=== PATIENT | male | born 1940 | race Caucasian/White ===

== ENCOUNTER 2024-01-22 17:36 | Inpatient (IN) | payer MEDICARE, BC ==
[~2024-01-22] VITALS: Ht 162.6 cm; Wt 84.7 kg
[~2024-01-22 17:36] MED LIST: BENTYL 20MG20 MG/TAB PO; CIPRO 500MG TA500 MG PO; CLARITIN 1010 MG/TAB PO; COLACE 100100 MG/CAP PO; COZAAR 25MG25 MG/TAB PO; FISH OIL1000 MG PO; LORTAB 5/500 501 TAB PO; MAXZIDE 50 MG-71 TAB PO; NORCO 325 MG-7.1 TAB PO; OCUVITE1 TA1 PO; OMEGA 31000 MG PO; PROTONIX 40MG T40 MG PO; SUPER EPA-3001000 MG PO; TENORMIN 5050 MG/TAB PO; VITAMIN D1000 IU PO; VITAMIN D32000 IU PO; ZOCOR 10MG10 MG PO; ZYRTEC 10MG10 MG PO
[2024-01-22] MEDS ORDERED: oxyCODONE 5 MG TAB PO PRN (18:15)
[2024-01-22] MEDS ORDERED: D5 1/2 NS 1,000 ML IV SCH (18:15)
[2024-01-22] MEDS ORDERED: Morphine 4 MG/ML VIAL IV PRN (18:15)
[2024-01-22] MEDS ORDERED: Naloxone 0.4 MG/ML VIAL IV PRN (18:15)
[2024-01-22] MEDS ORDERED: Acetaminophen 500 MG TAB PO SCH (19:09)
[2024-01-22] MEDS ORDERED: ELIQUIS 5MG PO (19:35)
[2024-01-22] MEDS ORDERED: OMEGA-3 1000 MG1 CAP PO (19:35)
[2024-01-22] MEDS ORDERED: MASON NATURAL2000 IU PO (19:36)
[2024-01-22] MEDS ORDERED: OCUVITE1 TA1 PO (19:36)
[2024-01-22] MEDS ORDERED: LIPITOR20 MG PO (19:36)
[2024-01-22] MEDS ORDERED: CARDIZEM CD 12120 MG PO (19:36)
[2024-01-22] MEDS ORDERED: PROTONIX 40MG T40 MG PO (19:37)
[2024-01-22] MEDS ORDERED: BYSTOLIC10 MG PO (19:37)
[2024-01-22] MEDS ORDERED: COZAAR100 MG PO (19:37)
[2024-01-22] MEDS ORDERED: INSPRA25 MG PO (19:37)
[2024-01-22] MEDS ORDERED: TIKOSYN0.25 MG PO (19:37)
[2024-01-22] MEDS ORDERED: ASPIRIN 81M81 MG/TA2 PO (20:14)
[2024-01-22] MEDS ORDERED: NORCO 325 MG-7.1 TAB PO (20:33)
[2024-01-22] MEDS ORDERED: TYLENOL 500MG500 MG PO (20:35)
[2024-01-22] MEDS ORDERED: TYLENOL 8 HR PO (20:36)
[2024-01-22 20:37] VITALS: BP 147/75; PULSE 83; TEMP 99.7
[2024-01-22 21:00] VITALS: BP_SYST 147
[2024-01-22] MEDS ORDERED: Dofetilide 250 MCG CAP PO SCH (21:00)
[2024-01-22] MEDS ORDERED: Atorvastatin 20 MG TAB PO SCH (21:00)
[2024-01-22] MEDS ORDERED: Eye Formula MVI w/Minerals TABLET PO SCH (21:00)
[2024-01-22] MEDS ORDERED: Loratadine 10 MG TAB PO SCH (21:00)
[2024-01-22 21:12] LABS: HEMATOCRIT 25.2 % (42.0-52.0)
--- NOTE | 2024-01-22 22:32 | NUR ---
pt arrived to room 345 at 1945 via EMS. pt assisted to bed via slide board. admission, physical assessment, and med rec complete. pt c/o of pain. prn oxycodone administered with no relief. prn morphine administered per orders and provided pt with relief. pt denies pain at this time. fall precautions in place. call light in reach. all needs met at this time.
[2024-01-23] VITALS (13 sets, daily range): BP systolic 128–175; BP diastolic 57–79; PULSE 62–82; TEMP 98–98.7
--- NOTE | 2024-01-23 01:54 | NUR ---
pt running temp of 102.4. prn tylenol administered per orders. prn robotussin administered per orders for cough.
--- NOTE | 2024-01-23 01:56 | NUR ---
pt c/o 04/08 left hip pain. prn morphine administered per orders.
[2024-01-23 07:19] LABS: ALBUMIN 3.1 g/dL (3.4-4.8); CALCIUM 8.2 mg/dL (8.4-10.2); CREATININE, serum 0.83 mg/dL (0.72-1.25); TOTAL PROTEIN 5.2 g/dl (6.2-8.1)
[2024-01-23 07:20] LABS: BASO % 0.3 % (0.0-2.0); EOS # 0.1 K/mm3 (0.0-0.7); EOS % 1.4 % (0.0-4.0); GRAN # 4.6 K/mm3 (1.4-6.5); GRAN % 73.2 % (42.2-75.2); LYMPH % 16.4 % (20.0-51.0); MEAN CELL VOLUME 84 fl (80.0-100.0); MEAN CORPUSCULAR HGB CONC 33 g/dl (33.0-37.0); MEAN PLATELET VOLUME 10.9 fl (7.4-10.4); MONO # 0.5 K/mm3 (0.1-0.6); MONO % 8.2 % (1.7-9.3); PLATELET COUNT 137 K/mm3 (130-400); RED BLOOD COUNT 2.73 M/mm3 (4.20-5.60); REDCELL DISTRIBUTION WIDTH-CV 15.7 % (11.5-14.5)
[2024-01-23 08:01] LABS: HEMOGLOBIN 7.6 g/dl (13.5-18.0); MEAN CORPUSCULAR HEMOGLOBIN 28 pg (27-31)
[2024-01-23] MEDS ORDERED: Losartan 50 MG TAB PO SCH (09:00)
[2024-01-23] MEDS ORDERED: Bisoprolol 5 MG TAB PO SCH (09:00)
[2024-01-23] MEDS ORDERED: dilTIAZem CD (24-HR) 120 MG CAP PO SCH ×2 (09:00→12:00)
[2024-01-23] MEDS ORDERED: Nebivolol 10 MG **** subs to Bisoprolol 10 MG PO SCH (09:00)
[2024-01-23] MEDS ORDERED: Cholecalciferol (Vit D3) 1000 Units TAB PO SCH (09:00)
[2024-01-23] MEDS ORDERED: EPINEPHrine 0.3 MG/0.3 ML Auto Injector IM SCH ×2 (10:50→11:00)
--- NOTE | 2024-01-23 11:32 | NUR ---
Initial visit; Patient thanked Sand Conditioner Machine for looking in on him. Patient and Sand Conditioner Machine are old friends. Patient not a demonstrative person but states he has enjoyed his family and has enjoyed a good life. Patient having trouble slowing down and recently just fell backward and hurt his hip and is waiting for to do something about his injury. Sand Conditioner Machine will keep "Jed" in her prayers.
[2024-01-23] MEDS ORDERED: Eplerenone 25 MG TAB PO SCH (12:00)
--- NOTE | 2024-01-23 16:21 | NUR ---
damper worker met with patient to discuss discharge planning. Patient was in pain and waiting for pain medications but was willing to meet with social work nurse. Patient lives in [place] with his , Justine, P# [phone]. PCP is Dr. Ponce in [place], Pharmacy is [facility] in [place] or [facility] in [place]. No issues affording medcations. Insurance is Medicare A and B, BCBS. DPOA-HC is on file in EMR appointing Gera Fletcher Tina and Terrance as agents. DME is walker. Patient reports to normally be independent with ADLS and was able to transport himself to and from appointments. Patient reports he has [address] and two steps onto his deck. Patient would like to go to the [facility] for swing bed rehab if needed. Patient reports he has been there several times and likes the therapists there and is closer to his home. Surgery will be either tomorrow or Saturday Discharge plan: Possible [facility], pending PT/OT after surgery
[2024-01-23 16:49] LABS: COLLECTION METHOD CATHETER
[2024-01-23 16:58] LABS: HEMATOCRIT 24.2 % (42.0-52.0); URINE APPEARANCE CLEAR (CLEAR/HAZY); URINE BLOOD 2+ (NEGATIVE); URINE COLOR YELLOW (YELLOW); URINE GLUCOSE NEGATIVE (NEGATIVE); URINE KETONE NEGATIVE (NEGATIVE); URINE NITRATE NEGATIVE (NEGATIVE); URINE PROTEIN(semi-quant) NEGATIVE (NEGATIVE)
[2024-01-23] MEDS ORDERED: OCUVITE1 TA1 PO (17:42)
--- NOTE | 2024-01-23 18:17 | NUR ---
Pt doing okay at this. He states that his pain is tolerable at this time. Consent signed for surgery. Pts at bedside
--- NOTE | 2024-01-23 19:50 | NUR ---
Dr Dean at bedside to see patient. New orders placed for low dose heparin gtt to run until 01/24/24@0600. Also ordering one unit of blood to be given overnight prior to surgical intervention. Orders placed in [facility]. Dr Santillan aware. Radiology updated and will come to do x ray per Dr Powers orders. Lab notified of stat lab draw needs. Report given to Primary nurse JERO Gregg>
[2024-01-23] MEDS ORDERED: Heparin 5,000 UNITS/ML 1 ML VIAL IV ONE ×2 (20:15→21:15)
[2024-01-23] MEDS ORDERED: Heparin 5,000 UNITS/ML 1 ML VIAL IV PRN ×2 (20:15→21:15)
[2024-01-23] MEDS ORDERED: Heparin/D5W 250 ML IV SCH ×2 (20:15→21:15)
[2024-01-23 20:16] LABS: MEAN CELL VOLUME 84 fl (80.0-100.0); MEAN CORPUSCULAR HGB CONC 33 g/dl (33.0-37.0); MEAN PLATELET VOLUME 10.2 fl (7.4-10.4); PLATELET COUNT 146 K/mm3 (130-400); RED BLOOD COUNT 2.81 M/mm3 (4.20-5.60); REDCELL DISTRIBUTION WIDTH-CV 15.4 % (11.5-14.5)
[2024-01-23 20:20] LABS: HEMATOCRIT 23.5 % (42.0-52.0); HEMOGLOBIN 7.8 g/dl (13.5-18.0); MEAN CORPUSCULAR HEMOGLOBIN 28 pg (27-31)
[2024-01-23 20:31] LABS: INR 1.2 (0.8-3.0); PARTIAL THROMBOPLASTIN TIME 25.5 SECONDS (26.0-37.0); PROTHROMBIN TIME 12.6 SECONDS (9.7-12.8)
--- NOTE | 2024-01-23 21:24 | NUR ---
Spoke with Ivan in pharmacy to clarify heparin order as this nurse has been unable to change the lab draw criteria. States he is working on this now. WIll initiate heparin once orders are changed in system. Report given to primary nurse JERO Gregg.
--- NOTE | 2024-01-23 21:43 | NUR ---
Heparin bolus and gtt initiated at this time by this nurse. Verified by JERO Real. New IV placed to left chest/upper arm-20g-x1 attempt for blood admin. Patient tolerated well. Report given to primary nurse JERO Gregg.
[2024-01-24] VITALS (27 sets, daily range): BP systolic 107–152; BP diastolic 38–71; PULSE 59–96; TEMP 98–98.9
[2024-01-24] MEDS ORDERED: LR 1,000 ML IV SCH (05:00)
[2024-01-24 05:02] LABS: BASO % 0.4 % (0.0-2.0); EOS # 0.3 K/mm3 (0.0-0.7); EOS % 3.4 % (0.0-4.0); GRAN # 5.5 K/mm3 (1.4-6.5); LYMPH # 1.7 K/mm3 (1.2-3.4); MEAN CELL VOLUME 85 fl (80.0-100.0); MEAN CORPUSCULAR HGB CONC 33 g/dl (33.0-37.0); MEAN PLATELET VOLUME 10.6 fl (7.4-10.4); MONO # 0.8 K/mm3 (0.1-0.6); MONO % 9.8 % (1.7-9.3); PLATELET COUNT 143 K/mm3 (130-400); RED BLOOD COUNT 3.09 M/mm3 (4.20-5.60); REDCELL DISTRIBUTION WIDTH-CV 15.4 % (11.5-14.5)
[2024-01-24 05:04] LABS: HEMATOCRIT 26.1 % (42.0-52.0); HEMOGLOBIN 8.5 g/dl (13.5-18.0); MEAN CORPUSCULAR HEMOGLOBIN 28 pg (27-31)
[2024-01-24 05:22] LABS: CALCIUM 8.5 mg/dL (8.4-10.2); CREATININE, serum 0.83 mg/dL (0.72-1.25); POTASSIUM 4.3 mEq/L (3.5-4.5)
--- NOTE | 2024-01-24 06:04 | NUR ---
Heparin GTT DCd at this time per dr order. Report given to primary nurse RA Marysol
--- NOTE | 2024-01-24 09:38 | NUR ---
Follow-up; Patient doing well, talkative as ever and an inspiration to share time with. Patient loves to talk about his family and his friendships and hobbies. Airport Tower Controller enjoys her time with him and wishes him a thorough and rapid recovery.
[2024-01-24 09:46] LABS: BILIRUBIN,TOTAL 1.1 mg/dL (0.2-1.2)
[2024-01-24] MEDS ORDERED: fentaNYL 50 MCG/ML 2 ML VIAL ONE (13:22)
[2024-01-24] MEDS ORDERED: NS 10 ML IV ONE (13:23)
[2024-01-24] MEDS ORDERED: Midazolam 2 MG/2 ML VIAL ONE (13:23)
[2024-01-24] MEDS ORDERED: dexAMETHasone 10 MG/ML VIAL ONE (13:23)
[2024-01-24] MEDS ORDERED: Lidocaine PF 2% (20 MG/ML) 5 ML VIAL ONE ×2 (13:23)
[2024-01-24] MEDS ORDERED: Ondansetron 4 MG/2 ML VIAL ONE (13:23)
[2024-01-24] MEDS ORDERED: ePHEDrine 50 MG/ML VIAL ONE (14:21)
[2024-01-24] MEDS ORDERED: Topical Skin Adhesive 1 EACH (1 ML) TOP ONE (14:58)
[2024-01-24] MEDS ORDERED: Morphine 2 MG/1 ML VIAL [PACU/SDC ONLY] IV PRN (15:00)
[2024-01-24] MEDS ORDERED: Ondansetron 4 MG/2 ML VIAL IV PRN (15:00)
[2024-01-24] MEDS ORDERED: HYDROmorphone 1 MG/1 ML SYRINGE [PACU/SDC ONLY] IV PRN (15:00)
[2024-01-24] MEDS ORDERED: Meperidine 50 MG/ML 1 ML VIAL IV PRN (15:00)
[2024-01-24] MEDS ORDERED: oxyCODONE 5 MG TAB PO PRN (15:30)
[2024-01-24] MEDS ORDERED: Naloxone 0.4 MG/ML VIAL IV PRN (15:30)
[2024-01-24] MEDS ORDERED: Magnes Hydrox (MOM) 80 MG/ML 30 ML CUP PO PRN (15:30)
[2024-01-24] MEDS ORDERED: Apixaban 5 MG TAB PO SCH ×2 (15:45→21:00)
--- NOTE | 2024-01-24 15:50 | NUR ---
bottle line worker met with patient and his to discuss preferences. LILLIE provided the Medicare.gov list of hospitals in patient's area for Swing bed along with SNF facilities. Patient and family's first choice is [facility] for swing bed and they report they have been in contact with the facility and hope he can go there. Patient's asked about a wheelchair and if insurance would cover it. SW explained if patient has a medical necessity for it the doctor would recommend it after rehab but likely he would be using a walker but if it is recommended they would sign an order. LILLIE provided the information for the [facility] in case insurance does not cover a wheelchair and needs assistance with a free rental. SW also provided information for private duty caregivers, emergency alert systems and additional resources in their area. LILLIE faxed referral to [facility] and left a voicemail with Sabina at the swing bed unit. LILLIE received a call from Sabina at the [facility]. Sabina explained they are getting full and worry they may not have a bed. Sabina explained patient's PCP is also out of town so she would need to see if one of their doctors would follow. Sabina recommended getting a second choice just in case they cannot take on Saturday. LILLIE met with patient and regarding what Sabina stated. Justine, , contacted patient's daughter, Maribell, whom reports they did not want to go to [facility] in [place]. Family agreed upon [facility] because patient's PCP is there even though it is a drive for the family. Family's first choice is [facility]. LILLIE was contacted by Sabina at [facility] whom explained they have a PCP that would follow patient for services there. Sabina explained to have the social work manager follow up on Saturday with her to see if they have bed availability as they would not be able to accept patient this weekend. LILLIE faxed referral to [facility] and left a voicemail with Nicole at the [facility] and explained they would be second choice due to location. Discharge plan: [place] [facility] or [facility] - Saturday
[2024-01-24] MEDS ORDERED: Acetaminophen 500 MG TAB PO SCH (16:28)
--- NOTE | 2024-01-24 16:43 | NUR ---
PT TO ROOM 345 PER BED WITH REPORT FROM ASIYA NOGUEIRA @2425. PT IS A/O X4, VSS, LUNGS CTA, BOWELSOUNDS PRESENT. DRESSINGS TO LEFT HIP CDI WITH TEGADERM OVER GAUZE. IV TO RH. FAMILY AT BEDSIDE.
--- NOTE | 2024-01-24 19:00 | NUR ---
PT IS EATING. DENIES PAIN. AT BEDSIDE. NO SIGN OF DISTRESS AT THIS TIME. CONTINUE WITH PLAN OF CARE.
[2024-01-24] MEDS ORDERED: ceFAZolin 2 G in Water For Injection,Sterile 20 ML IV SCH (19:28)
[2024-01-24] MEDS ORDERED: Sennosides/Docusate 8.6-50 MG TAB PO SCH (21:00)
[2024-01-24] MEDS ORDERED: NS 1,000 ML IV ONE (21:30)
[2024-01-24 22:17] LABS: HEMATOCRIT 24.3 % (42.0-52.0)
--- NOTE | 2024-01-24 22:50 | NUR ---
PT HAS SOME NUMBNESS TO OPERATIVE LEG. PT IS ABLE TO WIGGLE TOES. DENIES PAIN AT THIS TIME.
--- NOTE | 2024-01-24 22:52 | NUR ---
PT HAS SOME NUMBNESS TO OPERATIVE LEG. PT DENIES PAIN. PT IS ABLE TO WIGGLE TOES.
[2024-01-25] VITALS (12 sets, daily range): BP systolic 122–154; BP diastolic 64–71; PULSE 58–75; TEMP 97.5–98.1
[2024-01-25 06:53] LABS: BASO % 0.2 % (0.0-2.0); GRAN # 5.2 K/mm3 (1.4-6.5); GRAN % 82.9 % (42.2-75.2); LYMPH # 0.7 K/mm3 (1.2-3.4); LYMPH % 10.6 % (20.0-51.0); MEAN CELL VOLUME 85 fl (80.0-100.0); MEAN CORPUSCULAR HGB CONC 32 g/dl (33.0-37.0); MONO # 0.4 K/mm3 (0.1-0.6); MONO % 5.8 % (1.7-9.3); PLATELET COUNT 152 K/mm3 (130-400); RED BLOOD COUNT 2.81 M/mm3 (4.20-5.60); REDCELL DISTRIBUTION WIDTH-CV 15.2 % (11.5-14.5)
[2024-01-25 06:57] LABS: HEMOGLOBIN 7.7 g/dl (13.5-18.0); MEAN CORPUSCULAR HEMOGLOBIN 27 pg (27-31)
[2024-01-25 06:58] LABS: HEMATOCRIT 23.9 % (42.0-52.0)
[2024-01-25 07:07] LABS: CALCIUM 8.6 mg/dL (8.4-10.2); CREATININE, serum 1.05 mg/dL (0.72-1.25); POTASSIUM 4.3 mEq/L (3.5-4.5)
--- NOTE | 2024-01-25 08:00 | NUR ---
Pt. sitting up in bed. Pt. is A&OX3, assessment complete. INT to rt. hand patent. Pt. denies pain or other needs at this time. Call light within reach.
[2024-01-25] MEDS ORDERED: Calcium Carbonate 500 MG TAB PO SCH (09:00)
[2024-01-25] MEDS ORDERED: Ascorbic Acid 500 MG TAB PO SCH (09:00)
--- NOTE | 2024-01-25 11:46 | NUR ---
Follow-up visit: looked in on "Cb" briefly. His Physical Therapist was with him and laughed when told Cb he was "in for it" with this katlyn. wished him well. Cb thanked for stopping by.
[2024-01-25] MEDS ORDERED: Multivitamin TAB PO SCH (12:00)
--- NOTE | 2024-01-25 13:23 | NUR ---
LILLIE faxed updated clinicals to [facility] and [facility]. Discharge plan: Swing Bed
--- NOTE | 2024-01-25 19:05 | NUR ---
Received report from day shift nurse, Toni. Pt is lying in bed with call light within reach and bed alarms on. Pt is alert and has family at bedside at this time. Pt has a mendez in place with no kinks in tubing. Pt's L hip site looks clean, dry and intact. Pt on tele in sinus at this time. Will continue with pt care.
[2024-01-26] VITALS (10 sets, daily range): BP systolic 133–152; BP diastolic 66–74; PULSE 60–68; TEMP 97.5–98.3
--- NOTE | 2024-01-26 06:04 | NUR ---
Pt had an uneventful night. Pt has a mendez in place with no kinks in tubing and adequate urine output. Pt is currently resting in bed with the call light within reach and bed alarms on. Pt got scheduled tylenol, rated pain around a 2 throughout the night. Will give report to day shift nurse.
--- NOTE | 2024-01-26 06:12 | NUR ---
Pt's left hip site is clean, dry and intact and pulses are felt on the leg.
[2024-01-26 06:53] LABS: BASO % 0.1 % (0.0-2.0); EOS % 0.2 % (0.0-4.0); GRAN % 75.4 % (42.2-75.2); LYMPH # 1.3 K/mm3 (1.2-3.4); LYMPH % 14.1 % (20.0-51.0); MEAN CELL VOLUME 85 fl (80.0-100.0); MEAN CORPUSCULAR HGB CONC 33 g/dl (33.0-37.0); MEAN PLATELET VOLUME 10.9 fl (7.4-10.4); MONO # 0.9 K/mm3 (0.1-0.6); MONO % 9.8 % (1.7-9.3); PLATELET COUNT 177 K/mm3 (130-400); REDCELL DISTRIBUTION WIDTH-CV 15.9 % (11.5-14.5)
[2024-01-26 07:11] LABS: CALCIUM 8.5 mg/dL (8.4-10.2); CREATININE, serum 0.83 mg/dL (0.72-1.25); POTASSIUM 4.3 mEq/L (3.5-4.5)
[2024-01-26 07:12] LABS: HEMOGLOBIN 7.2 g/dl (13.5-18.0); MEAN CORPUSCULAR HEMOGLOBIN 28 pg (27-31)
--- NOTE | 2024-01-26 08:00 | NUR ---
PT LAYING IN BED UPON ENTERING. ASSESSMENT DONE, MEDS GIVEN PER ORDER. PT REPORTS 5/10 PAIN AND GIVEN PRN EMMIE. CAI DRAINING WITHOUT ISSUES. INT TO LEFT SHOULDER PATENT. 3 SURGICAL SITES TO LEFT HIP TO THIGH, DRESSED WITH GAUZE AND TAPE THAT IS CLEAN DRY AND INTACT. PT DENIES NEEDS AT THIS TIME. BED IN LOWEST POSITION, CALL LIGHT IN REACH, BED ALARM.
--- NOTE | 2024-01-26 15:12 | NUR ---
DR LEUNG CALLED AND NOTIFIED THAT PT IS ASKING WHEN CAI CAN BE REMOVED. THIS NURSE GIVEN A VERBAL ORDER TO PLACE DISCONTINUE FOLY ORDER.
--- NOTE | 2024-01-26 20:00 | NUR ---
Assessment complete. A&Ox3. Denies nausea/shortness of breath/pain. TELE reporting paced/SR. Currently on room air. VS stable. Left hip with three incision sites-gauze/tegaderm-CDI. INT to left [id number] without difficulty. Plan of care discussed for this shift to include meds/pain control/calling for questions/concerns. Call light in reach. Will monitor.
[2024-01-27] VITALS (9 sets, daily range): BP systolic 126–150; BP diastolic 55–70; PULSE 59–69; TEMP 97.8–98.3
--- NOTE | 2024-01-27 00:13 | NUR ---
Patient resting eyes closed. NO s/s of pain or discomfort noted. Will monitor.
--- NOTE | 2024-01-27 05:33 | NUR ---
Patient had an uneventful night. Slept off an on this shift. Denied pain/nausea/shortness of breath. VS stable. TELE reporting paced. Voiding without difficulty. INT to left [id number] without difficulty. Dressing to left hip x3-gauze/tegaderm-CDI. Denies current needs. Call light in reach. Will monitor.
--- NOTE | 2024-01-27 07:00 | NUR ---
Bedside report given to JERO Stiles.
--- NOTE | 2024-01-27 07:30 | NUR ---
Pt doing okay this morning, states that his left leg just feels sore/tight. Informed him the more he moves, the better that will get. Pt stated he understood. Assisted him with ordering breakfast, no other need at this time
--- NOTE | 2024-01-27 10:11 | NUR ---
Follow-up visit: "Cb's" and son were present. Functional Director talked with them awhile and wished patient well and God's blessings.
--- NOTE | 2024-01-27 11:25 | NUR ---
LILLIE attended clinical rounds with team. Patient stable for discharge pending SB acceptance. LILLIE received call from [facility] accepting patient for admission today. Patient and notified of acceptance and plan for discharge today. Patient questioning mode of transportation. LILLIE Flores tasked to research transportation options for patient due to his wanting to be transported via medical transprt if not too expensive. Discussed Medicare IM form with . agreeable to patient discharge and signed form, copy provided and original placed on chart.
--- NOTE | 2024-01-27 12:30 | NUR ---
Pt has continued to do well. He is getting up with one assist. PRN pain medication given as needed. Gave him fresh ice pack recently for left hip/thigh pain. Pts has been present at bedside. Pt and aware that he will be going to [facility] today at 1:30 per EMS. No question at this time
--- NOTE | 2024-01-27 12:42 | NUR ---
SW spoke with Sabina at [facility]. Patient to go to room 119, accepting physician is Dr. Palmer ([phone]) and Nurse to Nurse is [phone]. Patient to be transported at 1330.
--- NOTE | 2024-01-27 13:09 | NUR ---
Report called to Yaz BARRIOS to [facility]. Awaiting transportation
--- NOTE | 2024-01-27 15:52 | NUR ---
structural steel worker helper was notified patient's was unable to transport patient to [facility]. SW met with patient and his to discuss options. Patient stated he needs non-emergent transportation to go to Swing Bed. SW explained their non-emergent options would be [facility], EMS or family transport. Patient stated he would be fine to private pay EMS if insurance does not cover it. Patient reports he did not feel comfortable sitting for an hour and half in a vehicle or feel confident in his transfers from a vehicle. SW contacted [facility] whom expressed they do not have availability to transport out of town. SW contacted [facility] whom explained they could transport but it would not be until 5 pm for lease picker. [facility] believed this would be covered but provided the quote of $2,975.46 if not covered by insurance. SW provided this information to patient and his . The wanted to know if [facility] would take patient back to the hospital. SW contacted [facility] whom expressed they are unable to do so today as they do not have any vans in the area. SW was notified that [facility] would need patient before 6 pm, if patient were to leave via EMS at 5 pm they would not be at the [facility] until 6:30 pm. SW contacted [facility] to determine if they could lease picker before 5 pm. [facility] expressed they also believed this would be covered by insurance but provided the quote of $2,099 if it happened to not be covered. [facility] is able to transport at 1:30 pm. SW provided the quote to patient and . Patient expressed if it is not covered by his insurance they would pay the amount quoted. SW notified patient's nurse, doctor and ammunition supervisor of patient's discharge at 1:30 pm. Discharge plan: [facility]
--- NOTE | 2024-01-28 11:04 | NUR ---
winery worker was informed there was no detailed scheduled f/u appt at [facility]. LILLIE called [facility] and was informed pt is scheduled for 02/06/24 at 11:30am. LILLIE called [place] [phone] and [facility] and provided the above appt time.
== END 2024-01-27 13:30 | disposition swing bed (61) | DRG 482 ==
LOC: SURG 17:36
PROVIDERS: Internal Medicine Interventional Cardiology; Nurse Practitioner Family; Physician Assistant; ADMIT Internal Medicine
PROC: 0QS736Z Reposition Left Upper Femur with Intramedullary Internal Fixation Device, Percutaneous Approach (ICD-10-PCS; principal; 2024-01-22)
DX: S72.142A Displaced intertrochanteric fracture of left femur, initial encounter for closed fracture (principal); I48.0 Paroxysmal atrial fibrillation; Z79.01 Long term (current) use of anticoagulants; I10 Essential (primary) hypertension; E78.5 Hyperlipidemia, unspecified; I87.2 Venous insufficiency (chronic) (peripheral); G47.33 Obstructive sleep apnea (adult) (pediatric); Z87.891 Personal history of nicotine dependence; F10.90 Alcohol use, unspecified, uncomplicated
CPT/HCPCS: A9284; C1713; J0690; J1100; J1644; J2250; J2270; J2405; J2704; J2795; J3010; J7030; P9016